=== PATIENT | female | born 1955 | race Two or more races ===

== ENCOUNTER 2017-02-13 21:15 | Emergency (ER) | payer MEDICAID, MEDICARE ==
[~2017-02-13] VITALS: Ht 162.6 cm; Wt 65.6 kg
[~2017-02-13 21:15] MED LIST: ATEN25TA PO; LEVO75TA5 PO; METF500T9 PO; OMEP40CA6 PO
[2017-02-13 22:12] LABS: HEMATOCRIT 40.6 % (34.6-47.8); HEMOGLOBIN 13.5 g/dL (11.7-16.4)
[2017-02-13 22:25] LABS: BLOOD UREA NITROGEN 12 mg/dL (7-18)
[2017-02-13 22:29] LABS: IS PT STATUS REG ER OR PRE ER? YES
[2017-02-13 23:05] VITALS: BP 128/68
== END 2017-02-14 00:16 | disposition home or self-care (01) ==
LOC: ED 23:27
DX: F41.1 Generalized anxiety disorder (principal); R07.89 Other chest pain; H57.8 Other specified disorders of eye and adnexa; K21.9 Gastro-esophageal reflux disease without esophagitis; I10 Essential (primary) hypertension; E11.9 Type 2 diabetes mellitus without complications; E78.5 Hyperlipidemia, unspecified; Z90.710 Acquired absence of both cervix and uterus
CPT/HCPCS: 36415; 71010; 80048; 82040; 84484; 85025; 93005; 99285

== ENCOUNTER 2018-10-12 00:08 | Emergency (ER) | payer MEDICARE ==
[~2018-10-12] VITALS: Ht 157.5 cm; Wt 69.7 kg
[2018-10-12] MEDS ORDERED: MECLIZINE CHEWABLE 25 MG TAB PO ONE (00:30)
[2018-10-12] MEDS ORDERED: SODIUM CHLORIDE FLUSH 10ML SYR IVF ONE (00:30)
[2018-10-12] MEDS ORDERED: ONDANSETRON ODT 4 MG PO ONE (00:30)
--- NOTE | 2018-10-12 00:32 | NUR ---
PT IN HOSPITAL GOWN, RESTING IN BED AT THIS TIME. PT ON CARDIAC AND VITALS MONITORS. CXR DONE, LAB IN NOW TO DRAW BLOOD. EKG BEING DONE ALSO. USING [employer] APPLIER TO TRANSLATE TO PT. ELOISA BEDRAILS UP.
[2018-10-12] MEDS ORDERED: MECLIZINE CHEWABLE 25 MG TAB ONE (00:41)
[2018-10-12] MEDS ORDERED: ONDANSETRON ODT 4 MG ONE (00:41)
[2018-10-12 00:42] LABS: BASOPHILS # (AUTO) 0.04 x10^3/uL (0-0.1); BASOPHILS % (AUTO) 0 % (0-1); EOSINOPHILS # (AUTO) 0.19 x10^3/uL (0-0.4); EOSINOPHILS % (AUTO) 2 % (1-7); LYMPHOCYTES # (AUTO) 4.06 x10^3/uL (1-3.4); LYMPHOCYTES % (AUTO) 36 % (22-44); MD NO; MEAN CORPUSCULAR HGB CONC 32.3 g/dL (32.4-35.8); MEAN CORPUSCULAR VOLUME 86.8 fL (80-100); MEAN PLATELET VOLUME 8.5 fL (7.4-10.4); MONOCYTES # (AUTO) 1.02 x10^3/uL (0.2-0.8); MONOCYTES % (AUTO) 9 % (2-9); NEUTROPHILS # (AUTO) 6.12 x10^3/uL (1.8-6.8); NEUTROPHILS % (AUTO) 54 % (42-75); PLATELET COUNT 300 x10^3/uL (130-400); RED BLOOD COUNT 4.49 x10^6/uL (3.82-5.3); RED CELL DISTRIBUTION WIDTH 13.2 % (9.6-15.2)
--- NOTE | 2018-10-12 00:50 | NUR ---
PT MEDICATED WITH ORDERED MEDS PER EMAR. PT REFUSED XANAX, STATED SHE IS NOT ANXIOUS, JUST FEELS DIZZY AND NAUSEATED. PT GOING TO CT AT THIS TIME.
[2018-10-12 00:54] LABS: ALANINE AMINOTRANSFERASE 23 U/L (12-78); ALBUMIN 3.7 g/dL (3.4-5.0); ANION GAP 7 mmol/L (5-15); CALCIUM 8.6 mg/dL (8.5-10.1); CHLORIDE 109 mmol/L (98-107); CREATININE 0.63 mg/dL (0.55-1.02)
[2018-10-12 00:59] LABS: ALKALINE PHOSPHATASE 85 U/L (45-117); BILIRUBIN,TOTAL 0.1 mg/dL (0.2-1.0); T4 (THYROXINE) 10.7 mcg/dL (4.8-13.9); TOTAL PROTEIN 7.2 g/dL (6.4-8.2); TROPONIN I < 0.015 ng/mL (0.000-0.045)
--- NOTE | 2018-10-12 01:10 | NUR ---
REPORT FROM MO MCQUEEN TO ASSUME PT. CARE. PT. CURRENTLY IN BR TO PROVIDE URINE SAMPLE.
--- NOTE | 2018-10-12 01:32 | NUR ---
URINE SAMPLE COLLECTED AND SENT TO LAB. MONITORS REPLACED AND CALL LIGHT IN REACH. PT. DENIES NEEDS AT THIS TIME. ALL SAFETY MEASURES OBSERVED.
[2018-10-12 01:48] LABS: MICROSCOPIC AUTO
[2018-10-12 01:54] LABS: CULTURE INDICATED? YES
[2018-10-12 02:36] VITALS: BP 148/62
== END 2018-10-12 02:39 | disposition home or self-care (01) ==
LOC: ED 02:10
DX: R42 Dizziness and giddiness (principal); K21.9 Gastro-esophageal reflux disease without esophagitis; E78.5 Hyperlipidemia, unspecified; E11.9 Type 2 diabetes mellitus without complications; I10 Essential (primary) hypertension; Z90.49 Acquired absence of other specified parts of digestive tract; Z90.710 Acquired absence of both cervix and uterus
CPT/HCPCS: 36415; 70450; 71045; 80053; 81001; 83735; 83880; 84436; 84443; 84484; 85025; 87086; 93005; 99284; Q0162

== ENCOUNTER → 2019-04-10 | Outpatient (CLI) | payer MEDICARE, MEDICAID ==
[~2019-04-10] MED LIST changes: +METF500T12 PO; -METF500T9 PO; +OMEP40CA42 PO; -OMEP40CA6 PO
== END | disposition home or self-care (01) ==
LOC: CFH 12:23
PROVIDERS: ATTEND Family Medicine
DX: Z12.31 Encounter for screening mammogram for malignant neoplasm of breast (principal)
CPT/HCPCS: 77067